=== PATIENT | female | born 1995 ===

== ENCOUNTER 2018-04-14 07:00 | Inpatient (IN) ==
[2018-04-14] MEDS ORDERED: MEPERIDINE 50 MG/1 ML VIAL IV PRN (07:20)
[2018-04-14] MEDS ORDERED: BUTORPHANOL 2 MG/ML VIAL IV PRN (07:20)
[2018-04-14] MEDS: LACTATED RINGERS 1,000 ML IV SCH ×2 (07:35→21:48)
[2018-04-14 07:40] LABS: Basophils % 0.3 % (0.0-0.8); Eosinophils # 0.1 10*3/uL (0.0-0.87); Eosinophils % 1.1 % (0.00-10.9); Hemoglobin 10.6 GM/DL (12.0-16.0); Immature Granulocytes % 0.3 %; Immature Granulocytes Absolute 0.02 #; Lymphocytes # 1.5 10*3/uL (1.4-4.0); Lymphocytes % 20.8 % (21.3-54.2); Mean Corpuscular HGB Conc 31.2 GM/DL (32-36); Mean Corpuscular Hemoglobin 26 PG (27-34); Mean Corpuscular Volume 83.5 FL (87-102); Mean Platelet Volume 11.9 FL (9.6-12.0); Monocytes # 0.5 10*3/uL (0.11-0.8); Monocytes % 7.1 % (1.7-12.7); Neutrophils # 5.2 10*3/uL (1.4-7.4); Neutrophils % 70.4 % (38.7-73.9); Platelet Count 231 T/CUMM (130-400); Red Blood Count 4.07 MC/CUMM (3.8-5.5); Red Cell Distribution Width 14.2 % (9.3-17.3); White Blood Count 7.4 T/CUMM (4-12)
[2018-04-14] MEDS ORDERED: diphenhydrAMINE 50 MG/1 ML VIAL IV PRN ×2 (07:51)
[2018-04-14] MEDS ORDERED: PROMETHAZINE 25 MG/1 ML VIAL IM ONE (07:51)
[2018-04-14] MEDS ORDERED: NALOXONE 0.4 MG/ML VIAL IV PRN (07:51)
[2018-04-14] MEDS ORDERED: FAMOTIDINE 20 MG/2 ML VIAL IV ONE (07:51)
[2018-04-14] MEDS ORDERED: ePHEDrine 50 MG/ML AMP IV PRN (07:51)
[2018-04-14] MEDS ORDERED: LACTATED RINGERS 1,000 ML IV ONE (07:51)
[2018-04-14] MEDS ORDERED: CITRIC ACID/SODIUM CITRATE 30 ML UDCUP PO ONE (07:51)
[2018-04-14] MEDS ORDERED: hydrOXYzine HCL 25 MG/1 ML VIAL IM PRN (07:51)
[2018-04-14] MEDS: OXYTOCIN/LR 20 UNIT/1,000 ML BAG IV SCH (07:52)
[2018-04-14] MEDS ORDERED: fentaNYL 2 MCG/ROPIV 0.2% EPID 100 ML EPIDURAL SCH (08:00)
[2018-04-14] MEDS ORDERED: AMPICILLIN INJ 2,000 MG in SODIUM CHLORIDE 0.9% 100 ML IV ONE (08:30)
[2018-04-14] MEDS ORDERED: SODIUM CHLORIDE 0.9% 100 ML IV ONE (08:42)
[2018-04-14] MEDS ORDERED: AMPICILLIN 2,000 MG VIAL ONE (08:42)
[2018-04-14] MEDS ORDERED: AMPICILLIN INJ 1,000 MG in SODIUM CHLORIDE 0.9% 100 ML IV SCH (12:30)
[2018-04-14] MEDS: ONDANSETRON 4 MG/2 ML VIAL IV PRN ×2 (15:49→23:44)
[2018-04-14] MEDS: AMPICILLIN INJ 2,000 MG in SODIUM CHLORIDE 0.9% 100 ML IV SCH (18:23)
[2018-04-15] MEDS: AMPICILLIN INJ 2,000 MG in SODIUM CHLORIDE 0.9% 100 ML IV SCH ×2 (00:04→06:05)
[2018-04-15] MEDS: OXYTOCIN/LR 20 UNIT/1,000 ML BAG IV SCH (02:05)
[2018-04-15] MEDS ORDERED: CITRIC ACID/SODIUM CITRATE 30 ML UDCUP ONE (02:40)
[2018-04-15] MEDS: LACTATED RINGERS 1,000 ML IV SCH (03:13)
[2018-04-15 06:43] LABS: RBC,Urine <1 /HPF (0-4); Squamous Epithelial Cell,Urine Occasional /HPF (0-10); Urine Color Yellow (Yellow); WBC,Urine <1 /HPF (0-6)
[2018-04-15 06:44] LABS: Apearance,Urine Clear (Clear); Glucose,Urine (UA) Negative (Negative); Ketones,Urine 25 mg/dL (Negative); Protein,Urine Negative
[2018-04-15 06:45] LABS: Bilirubin,Urine Negative (Negative); Blood, Urine Negative (Negative); Nitrite,Urine Negative (Negative); Urine Urobilinogen 0.2 EU/DL (0.2-1.0)
[2018-04-15] MEDS ORDERED: LIDOCAINE 1% 50 ML VIAL ONE (09:13)
[2018-04-15] MEDS ORDERED: miSOPROStol 200 MCG TABLET ONE (09:14)
[2018-04-15] MEDS ORDERED: CARBOPROST TROMETHAMINE 250 MCG/ML AMP IM ONE (09:14)
[2018-04-15] MEDS ORDERED: METHYLERGONOVINE 0.2 MG/1 ML AMP ONE (09:14)
[2018-04-15] MEDS ORDERED: ACETAMINOPHEN/CODEINE 300-30 MG TABLET PO PRN (10:30)
[2018-04-15] MEDS ORDERED: ACETAMINOPHEN 325 MG TABLET PO PRN (12:38)
[2018-04-15] MEDS ORDERED: RHO(D) IMMUNE GLOBULIN 300 MCG SYRINGE IM ONE (12:38)
[2018-04-15] MEDS ORDERED: DIPH/TET/ACEL PERT BOOSTER VACCINE 0.5 ML VIAL IM ONE (12:38)
[2018-04-15] MEDS ORDERED: IBUPROFEN 800 MG TABLET PO PRN (12:38)
[2018-04-15] MEDS ORDERED: BISACODYL 10 MG SUPP RECTAL PRN (12:38)
[2018-04-15] MEDS ORDERED: oxyCODONE/ACETAMINOPHEN 5-325 MG TABLET PO PRN (12:38)
[2018-04-15] MEDS ORDERED: HYDROCORTISONE 2.5% RECTAL CREAM 30 GM TUBE TOP PRN (12:38)
[2018-04-15] MEDS ORDERED: ONDANSETRON 4 MG/2 ML VIAL IV PRN (12:38)
[2018-04-15] MEDS ORDERED: MEASLES/MUMPS/RUBELLA VACCINE 0.5 ML VIAL SUBCUT ONE (12:38)
[2018-04-15] MEDS ORDERED: LANOLIN 50% CREAM 0.3 OZ TUBE TOP PRN (12:38)
[2018-04-15] MEDS ORDERED: BENZOCAINE 20%/MENTHOL 0.5% SPRAY 56 GM CAN TOP PRN (12:38)
[2018-04-15] MEDS ORDERED: WITCH HAZEL PADS 100/JAR TOP PRN (12:38)
[2018-04-15] MEDS ORDERED: OXYTOCIN/LR 20 UNIT/1,000 ML BAG IV ONE (12:39)
[2018-04-15] MEDS: oxyCODONE/ACETAMINOPHEN 5-325 MG TABLET PO PRN ×2 (16:06→23:27)
[2018-04-15] MEDS: DOCUSATE SODIUM 100 MG CAPSULE PO SCH (20:58)
[2018-04-16 07:07] LABS: Basophils % 0.4 % (0.0-0.8); Eosinophils # 0.1 10*3/uL (0.0-0.87); Eosinophils % 0.8 % (0.00-10.9); Hematocrit 26.1 VOL% (35.7-47.0); Immature Granulocytes % 0.6 %; Immature Granulocytes Absolute 0.07 #; Lymphocytes # 1.9 10*3/uL (1.4-4.0); Lymphocytes % 17.1 % (21.3-54.2); Mean Corpuscular HGB Conc 30.7 GM/DL (32-36); Mean Corpuscular Hemoglobin 26 PG (27-34); Mean Corpuscular Volume 83.7 FL (87-102); Mean Platelet Volume 12.3 FL (9.6-12.0); Monocytes # 0.7 10*3/uL (0.11-0.8); Monocytes % 6.5 % (1.7-12.7); Neutrophils # 8.3 10*3/uL (1.4-7.4); Neutrophils % 74.6 % (38.7-73.9); Red Cell Distribution Width 14.6 % (9.3-17.3)
[2018-04-16 07:10] LABS: Red Blood Count 3.12 MC/CUMM (3.8-5.5); White Blood Count 11.1 T/CUMM (4-12)
[2018-04-16 07:11] LABS: Platelet Count 182 T/CUMM (130-400)
[2018-04-16] MEDS ORDERED: INFLUENZA VIRUS VACCINE 0.5 ML SYRINGE IM ONE (07:29)
[2018-04-16] MEDS: oxyCODONE/ACETAMINOPHEN 5-325 MG TABLET PO PRN ×2 (07:49→21:03)
[2018-04-16] MEDS: DOCUSATE SODIUM 100 MG CAPSULE PO SCH ×2 (08:10→21:03)
[2018-04-16] MEDS: FERROUS SULFATE 325 MG TABLET PO SCH ×2 (08:10→21:03)
[2018-04-17 07:37] VITALS: BP 123/64
[2018-04-17] MEDS: FERROUS SULFATE 325 MG TABLET PO SCH (08:33)
[2018-04-17] MEDS: DOCUSATE SODIUM 100 MG CAPSULE PO SCH (08:33)
[2018-04-17] MEDS: oxyCODONE/ACETAMINOPHEN 5-325 MG TABLET PO PRN (10:09)
== END 2018-04-17 12:30 | disposition home or self-care (01) | DRG 560 ==
LOC: N.LDOUT 07:00 → N.LD 07:04 → N.OB 04-15 12:47
PROVIDERS: ADMIT Obstetrics & Gynecology; ATTEND Obstetrics & Gynecology

== ENCOUNTER 2019-03-20 03:17 | Inpatient (IN) ==
[2019-03-20] MEDS ORDERED: BUTORPHANOL 2 MG/ML VIAL IV PRN (03:32)
[2019-03-20] MEDS ORDERED: ONDANSETRON 4 MG/2 ML VIAL IV PRN (03:32)
[2019-03-20] MEDS ORDERED: OXYTOCIN/LR 20 UNIT/1,000 ML BAG IV PRN (03:34)
[2019-03-20] MEDS ORDERED: hydrOXYzine HCL 25 MG/1 ML VIAL IM PRN (03:38)
[2019-03-20] MEDS ORDERED: ePHEDrine 50 MG/ML AMP IV PRN (03:38)
[2019-03-20] MEDS ORDERED: diphenhydrAMINE 50 MG/1 ML VIAL IV PRN ×2 (03:38)
[2019-03-20] MEDS ORDERED: PROMETHAZINE 25 MG/1 ML VIAL IM PRN (03:38)
[2019-03-20] MEDS ORDERED: NALOXONE 0.4 MG/ML VIAL IV PRN (03:38)
[2019-03-20] MEDS ORDERED: FAMOTIDINE 20 MG/2 ML VIAL IV PRN (03:39)
[2019-03-20] MEDS ORDERED: CITRIC ACID/SODIUM CITRATE 30 ML UDCUP PO PRN (03:40)
[2019-03-20] MEDS: LACTATED RINGERS 1,000 ML IV SCH ×4 (03:50→20:50)
[2019-03-20] MEDS ORDERED: fentaNYL 2 MCG/ROPIV 0.2% EPID 100 ML EPIDURAL SCH (04:00)
[2019-03-20 04:08] LABS: Basophils % 0.4 % (0.0-0.8); Eosinophils # 0.1 10*3/uL (0.0-0.87); Hematocrit 33.4 VOL% (35.7-47.0); Hemoglobin 10.1 GM/DL (12.0-16.0); Immature Granulocytes % 0.6 %; Immature Granulocytes Absolute 0.04 #; Lymphocytes # 1.7 10*3/uL (1.4-4.0); Lymphocytes % 23.1 % (21.3-54.2); Mean Corpuscular HGB Conc 30.2 GM/DL (32-36); Mean Corpuscular Volume 74.6 FL (87-102); Mean Platelet Volume 11.9 FL (9.6-12.0); Monocytes % 6.4 % (1.7-12.7); Neutrophils % 68.5 % (38.7-73.9); Platelet Count 243 T/CUMM (130-400); Red Blood Count 4.48 MC/CUMM (3.8-5.5); Red Cell Distribution Width 16.8 % (9.3-17.3); White Blood Count 7.2 T/CUMM (4-12)
[2019-03-20 04:29] LABS: INR 0.9; PT Patient Result 9.4 SECS (9.6-12.2)
[2019-03-20 04:39] LABS: Alanine Aminotransferase 11 U/L (13-56); Albumin 2.9 G/DL (3.4-5.0); Alkaline Phosphatase 241 U/L (45-117); Aspartate Amino Transferase 13 U/L (0-37); Bilirubin,Total < 0.39 MG/DL (0.2-1.0); Blood Urea Nitrogen 12 MG/DL (7-18); Calcium 8.8 MG/DL (8.5-10.1); Estimated Glom Filtration Rate 113 ML/MIN; Glucose 86 MG/DL (74-106); Osmolality,Calculated 271.8 MOS/KG (273-304); Total Protein 7.7 G/DL (6.4-8.3)
[2019-03-20] MEDS ORDERED: OXYTOCIN/LR 20 UNIT/1,000 ML BAG IV SCH (08:00)
[2019-03-20] MEDS ORDERED: miSOPROStoL 200 MCG TABLET VAG ONE (08:20)
[2019-03-20] MEDS ORDERED: miSOPROStoL 200 MCG TABLET ONE ×2 (08:22→08:23)
[2019-03-20 09:16] LABS: Apearance,Urine CLEAR (Clear); Bacteria,Urine Occasional /HPF (Few); Bilirubin,Urine Negative (Negative); Blood, Urine Negative (Negative); Glucose,Urine (UA) Negative (Negative); Ketones,Urine Negative (Negative); Mucus,Urine Occasional /LPF (Occasional); Nitrite,Urine Negative (Negative); Protein,Urine Negative; RBC,Urine <1 /HPF (0-4); Squamous Epithelial Cell,Urine Occasional /HPF (0-10); Urine Color Yellow (Yellow); Urine Specific Gravity 1.014 (1.001-1.035); Urine Urobilinogen < 2.0 EU/DL (0.2-1.0); WBC,Urine <1 /HPF (0-6)
[2019-03-20] MEDS ORDERED: MEASLES/MUMPS/RUBELLA VACCINE 0.5 ML VIAL SUBCUT ONE (10:36)
[2019-03-20] MEDS ORDERED: RHO(D) IMMUNE GLOBULIN 300 MCG SYRINGE IM ONE (10:36)
[2019-03-20] MEDS ORDERED: WITCH HAZEL PADS 100/JAR TOP PRN (10:36)
[2019-03-20] MEDS ORDERED: DIPH/TET/ACEL PERT BOOSTER VACCINE 0.5 ML VIAL IM ONE (10:36)
[2019-03-20] MEDS ORDERED: BISACODYL 10 MG SUPP RECTAL PRN (10:36)
[2019-03-20] MEDS ORDERED: ACETAMINOPHEN 325 MG TABLET PO SCH (10:36)
[2019-03-20] MEDS ORDERED: BENZOCAINE 20%/MENTHOL 0.5% SPRAY 56 GM CAN TOP PRN (10:36)
[2019-03-20] MEDS ORDERED: HYDROCORTISONE 2.5% RECTAL CREAM 30 GM TUBE TOP PRN (10:36)
[2019-03-20] MEDS ORDERED: LANOLIN 50% CREAM 0.3 OZ TUBE TOP PRN (10:36)
[2019-03-20] MEDS: ACETAMINOPHEN 500 MG TABLET PO SCH ×2 (12:08→17:39)
[2019-03-20] MEDS: KETOROLAC 30 MG/1 ML VIAL IV SCH ×2 (12:09→17:40)
[2019-03-20] MEDS: DOCUSATE SODIUM 100 MG CAPSULE PO SCH ×2 (17:39→20:35)
[2019-03-21] MEDS: ACETAMINOPHEN 500 MG TABLET PO SCH ×4 (01:25→18:29)
[2019-03-21 04:51] LABS: Basophils % 0.4 % (0.0-0.8); Eosinophils # 0.1 10*3/uL (0.0-0.87); Eosinophils % 0.8 % (0.00-10.9); Hematocrit 28.8 VOL% (35.7-47.0); Hemoglobin 8.7 GM/DL (12.0-16.0); Immature Granulocytes % 0.3 %; Immature Granulocytes Absolute 0.02 #; Lymphocytes % 26.2 % (21.3-54.2); Mean Corpuscular HGB Conc 30.2 GM/DL (32-36); Mean Platelet Volume 11.2 FL (9.6-12.0); Monocytes % 8.1 % (1.7-12.7); Neutrophils % 64.2 % (38.7-73.9); Platelet Count 167 T/CUMM (130-400); Red Blood Count 3.84 MC/CUMM (3.8-5.5); White Blood Count 7.8 T/CUMM (4-12)
[2019-03-21] MEDS: IBUPROFEN 800 MG TABLET PO SCH ×3 (06:02→21:52)
[2019-03-21] MEDS: DOCUSATE SODIUM 100 MG CAPSULE PO SCH ×2 (08:46→20:08)
[2019-03-22] MEDS: IBUPROFEN 800 MG TABLET PO SCH (06:05)
[2019-03-22] MEDS: DOCUSATE SODIUM 100 MG CAPSULE PO SCH (08:20)
[2019-03-22 08:21] VITALS: BP 116/70
== END 2019-03-22 12:30 | disposition home or self-care (01) | DRG 560 ==
LOC: N.LDOUT 03:17 → N.LD 03:19 → N.OB 21:02
PROVIDERS: ADMIT Obstetrics & Gynecology; ATTEND Obstetrics & Gynecology

== ENCOUNTER 2021-08-27 00:07 | Inpatient (IN) ==
[2021-08-27] MEDS ORDERED: OXYTOCIN/LR 20 UNIT/1,000 ML BAG IV ONE ×2 (00:45→14:16)
[2021-08-27] MEDS ORDERED: TRANEXAMIC ACID 1,000 MG in SODIUM CHLORIDE 0.9% 100 ML IV PRN (00:45)
[2021-08-27] MEDS ORDERED: LACTATED RINGERS 250 ML IV ONE (00:45)
[2021-08-27] MEDS ORDERED: LACTATED RINGERS 500 ML IV PRN (00:45)
[2021-08-27] MEDS ORDERED: ONDANSETRON 4 MG/2 ML VIAL IV PRN (00:45)
[2021-08-27] MEDS ORDERED: METHYLERGONOVINE 0.2 MG/1 ML AMP IM PRN (00:45)
[2021-08-27] MEDS ORDERED: miSOPROStoL 200 MCG TABLET RECTAL PRN (00:45)
[2021-08-27] MEDS ORDERED: CARBOPROST TROMETHAMINE 250 MCG/ML AMP IM PRN (00:45)
[2021-08-27] MEDS: LACTATED RINGERS 1,000 ML IV SCH ×3 (01:10→10:28)
[2021-08-27 01:22] LABS: Basophils % 0.4 % (0.0-0.8); Eosinophils # 0.1 10*3/uL (0.0-0.87); Eosinophils % 0.8 % (0.00-10.9); Immature Granulocytes % 0.4 %; Immature Granulocytes Absolute 0.03 #; Lymphocytes # 1.9 10*3/uL (1.4-4.0); Lymphocytes % 25.3 % (21.3-54.2); Mean Corpuscular HGB Conc 32.4 GM/DL (32-36); Mean Corpuscular Volume 82.1 FL (87-102); Mean Platelet Volume 12.5 FL (9.6-12.0); Monocytes % 5.8 % (1.7-12.7); Neutrophils % 67.3 % (38.7-73.9); Platelet Count 194 T/CUMM (130-400); Red Blood Count 4.14 MC/CUMM (3.8-5.5); Red Cell Distribution Width 13.7 % (9.3-17.3); White Blood Count 7.4 T/CUMM (4-12)
[2021-08-27 01:50] LABS: Alanine Aminotransferase 28 U/L (13-56); Albumin 2.5 G/DL (3.4-5.0); Alkaline Phosphatase 260 U/L (45-117); Aspartate Amino Transferase 27 U/L (0-37); Bilirubin,Total < 0.39 MG/DL (0.20-1.00); Blood Urea Nitrogen 12 MG/DL (7-18); Calcium 8.7 MG/DL (8.5-10.1); Carbon Dioxide 18 MMOL/L (21-32); Estimated Glom Filtration Rate 111 ML/MIN; Glucose 108 MG/DL (74-106); Potassium 3.7 MMOL/L (3.5-5.1); Sodium 136 MMOL/L (136-145); Total Protein 7.2 G/DL (6.4-8.2)
[2021-08-27] MEDS ORDERED: hydrOXYzine HCL 25 MG/1 ML VIAL IM PRN (06:16)
[2021-08-27] MEDS ORDERED: ePHEDrine 50 MG/ML VIAL IV PRN (06:16)
[2021-08-27] MEDS ORDERED: LACTATED RINGERS 250 ML IV PRN (06:16)
[2021-08-27] MEDS ORDERED: ONDANSETRON 4 MG/2 ML VIAL IV ONE (06:16)
[2021-08-27] MEDS ORDERED: diphenhydrAMINE 50 MG/1 ML VIAL IV PRN ×2 (06:16)
[2021-08-27] MEDS ORDERED: NALOXONE 0.4 MG/ML VIAL IV PRN (06:16)
[2021-08-27] MEDS ORDERED: PROMETHAZINE 25 MG/1 ML VIAL IM ONE (06:16)
[2021-08-27] MEDS ORDERED: LACTATED RINGERS 500 ML IV ONE (06:20)
[2021-08-27] MEDS ORDERED: FAMOTIDINE 20 MG/2 ML VIAL IV ONE (06:20)
[2021-08-27] MEDS ORDERED: CITRIC ACID/SODIUM CITRATE 30 ML UDCUP PO ONE (06:20)
[2021-08-27] MEDS ORDERED: LACTATED RINGERS 1,000 ML IV ONE (06:20)
[2021-08-27] MEDS ORDERED: fentaNYL 2 MCG/ROPIV 0.2% EPID 100 ML EPIDURAL SCH (06:30)
[2021-08-27] MEDS ORDERED: LACTATED RINGERS 1,000 ML IV SCH ×2 (06:30)
[2021-08-27] MEDS ORDERED: AMPICILLIN INJ 2,000 MG in SODIUM CHLORIDE 0.9% 100 ML IV ONE (08:37)
[2021-08-27] MEDS ORDERED: OXYTOCIN/LR 20 UNIT/1,000 ML BAG IV SCH (11:30)
[2021-08-27 12:01] LABS: Bacteria,Urine Occasional /HPF (Few); Bilirubin,Urine Negative (Negative); Glucose,Urine (UA) Negative (Negative); Ketones,Urine Negative (Negative); Nitrite,Urine Negative (Negative); Protein,Urine Negative (Negative); RBC,Urine 1 /HPF (0-4); Urine Appearance Clear (Clear); Urine Color Yellow (Yellow); Urine Specific Gravity 1.015 (1.001-1.035); Urine pH 6.5 (4.5-8.0)
[2021-08-27 12:02] LABS: Blood, Urine Negative (Negative); Urine Urobilinogen 0.2 eU/dL (<2.0)
[2021-08-27] MEDS ORDERED: AMPICILLIN INJ 1,000 MG in SODIUM CHLORIDE 0.9% 100 ML IV SCH (12:45)
[2021-08-27] MEDS ORDERED: TRANEXAMIC ACID 1,000 MG/10 ML VIAL ONE (14:16)
[2021-08-27] MEDS ORDERED: SODIUM CHLORIDE 0.9% 0 ML IV ONE (14:16)
[2021-08-27] MEDS ORDERED: miSOPROStoL 200 MCG TABLET ONE (14:16)
[2021-08-27] MEDS ORDERED: METHYLERGONOVINE 0.2 MG/1 ML AMP ONE (14:17)
[2021-08-27] MEDS ORDERED: CARBOPROST TROMETHAMINE 250 MCG/ML AMP IM ONE (14:17)
[2021-08-27 15:44] LABS: Cord Arterial Blood HCO3 21.3 MMOL/L
[2021-08-27 15:47] LABS: Cord Venous Blood HCO3 20.8 MMOL/L; Cord Venous Blood PCO2 36.1 MMHG; Cord Venous Blood PO2 36.7 MMHG
[2021-08-27] MEDS ORDERED: DIPH/TET/ACEL PERT BOOSTER VACCINE 0.5 ML VIAL IM ONE (18:12)
[2021-08-27] MEDS ORDERED: RHO(D) IMMUNE GLOBULIN 300 MCG SYRINGE IM ONE (18:12)
[2021-08-27] MEDS ORDERED: HYDROCORTISONE 2.5% RECTAL CREAM 30 GM TUBE TOP PRN (18:12)
[2021-08-27] MEDS ORDERED: oxyCODONE/ACETAMINOPHEN 5-325 MG TABLET PO PRN ×2 (18:12)
[2021-08-27] MEDS ORDERED: LANOLIN 50% CREAM 0.3 OZ TUBE TOP PRN (18:12)
[2021-08-27] MEDS ORDERED: BISACODYL 10 MG SUPP RECTAL PRN (18:12)
[2021-08-27] MEDS ORDERED: ACETAMINOPHEN 325 MG TABLET PO PRN (18:12)
[2021-08-27] MEDS ORDERED: MEASLES/MUMPS/RUBELLA VACCINE 0.5 ML VIAL SUBCUT ONE (18:12)
[2021-08-27] MEDS ORDERED: BENZOCAINE 20%/MENTHOL 0.5% SPRAY 56 GM CAN TOP PRN (18:12)
[2021-08-27] MEDS ORDERED: WITCH HAZEL PADS 100/JAR TOP PRN (18:12)
[2021-08-27] MEDS: IBUPROFEN 800 MG TABLET PO PRN (19:25)
[2021-08-27] MEDS: DOCUSATE SODIUM 100 MG CAPSULE PO SCH ×2 (19:26→22:50)
[2021-08-28 06:01] LABS: Basophils % 0.3 % (0.0-0.8); Eosinophils # 0.1 10*3/uL (0.0-0.87); Eosinophils % 0.5 % (0.00-10.9); Hematocrit 31.7 VOL% (35.7-47.0); Hemoglobin 10.2 GM/DL (12.0-16.0); Immature Granulocytes % 0.4 %; Immature Granulocytes Absolute 0.04 #; Lymphocytes # 1.9 10*3/uL (1.4-4.0); Lymphocytes % 19.7 % (21.3-54.2); Mean Corpuscular HGB Conc 32.2 GM/DL (32-36); Mean Corpuscular Volume 83.2 FL (87-102); Mean Platelet Volume 12.7 FL (9.6-12.0); Monocytes % 7.2 % (1.7-12.7); Neutrophils % 71.9 % (38.7-73.9); Platelet Count 174 T/CUMM (130-400); Red Blood Count 3.81 MC/CUMM (3.8-5.5); Red Cell Distribution Width 13.8 % (9.3-17.3); White Blood Count 9.6 T/CUMM (4-12)
[2021-08-28] MEDS: DOCUSATE SODIUM 100 MG CAPSULE PO SCH ×2 (08:54→22:02)
[2021-08-28] MEDS: IBUPROFEN 800 MG TABLET PO PRN ×2 (11:53→19:35)
[2021-08-29] MEDS: IBUPROFEN 800 MG TABLET PO PRN (02:25)
[2021-08-29 07:18] VITALS: BP 96/53
[2021-08-29] MEDS: DOCUSATE SODIUM 100 MG CAPSULE PO SCH (08:52)
[2021-08-29] MEDS ORDERED: DIPH/TET/ACEL PERT BOOSTER VACCINE 0.5 ML VIAL IM ONE (11:30)
== END 2021-08-29 11:25 | disposition home or self-care (01) | DRG 560 ==
LOC: N.LD 00:07 → N.OB 18:05
PROVIDERS: ADMIT Obstetrics & Gynecology; ATTEND Obstetrics & Gynecology